=== PATIENT | female | born 1995 | race American Indian/Alaskan Native ===

== ENCOUNTER 2017-11-27 07:22 | Emergency (ER) | payer OTHER ==
[2017-11-27 07:28] VITALS: TEMP 97; BMI 25.4
[2017-11-27] MEDS ORDERED: Albuterol-Ipratrop 3 mg / 0.5 (3 ml) UD ONE (07:45)
[2017-11-27] MEDS ORDERED: Albuterol-Ipratrop 3 mg / 0.5 (3 ml) UD INH STA (07:59)
[2017-11-27] MEDS ORDERED: Albuterol-Ipratrop 3 mg / 0.5 (3 ml) UD IH STA (07:59)
[2017-11-27 08:00] VITALS: RESP 20
--- NOTE | 2017-11-27 08:31 | ED PDOC ---
HPI: General Adult Time Seen by Provider: 11/27/17 07:38 Chief Complaint (Nursing): Shortness Of Breath History Per: Patient History/Exam Limitations: no limitations Onset/Duration Of Symptoms: Days (x 3) Current Symptoms Are (Timing): Still Present Additional Complaint(s): Ms. Khan is a 22 year old female who presents to the ED complaining of trouble breathing and wheezing since midnight. Patient states she ran out of her inhaler "couple a days ago". Patient reports slight back tightness. Denies nausea, vomiting, abdominal pain, chest pain, dizziness, weakness, headache. PMD: Willis Past Medical History Reviewed: Historical Data, Nursing Documentation, Vital Signs Vital Signs: Last Vital Signs Temp 97 F L 11/27/17 07:27 Pulse 92 H 11/27/17 07:27 Resp 20 11/27/17 07:52 BP 128/78 11/27/17 07:27 Pulse Ox 95 11/27/17 08:39 - Medical History PMH: Asthma - Surgical History Surgical History: No Surg Hx - Family History Family History: States: Unknown Family Hx - Social History Current smoker - smoking cessation education provided: No Alcohol: None Drugs: Denies - Home Medications Home Medications: Ambulatory Orders Medication Instructions Recorded Albuterol Sulfate [Proair Hfa] 0.09 mg IH Q6H PRN #2 inh 11/27/17 predniSONE [predniSONE Tab] 20 mg PO BID 5 Days tab 11/27/17 - Allergies Allergies/Adverse Reactions: Allergies Allergy/AdvReac Type Severity Reaction Status Date / Time No Known Allergies Allergy Verified 11/27/17 07:48 Review of Systems ROS Statement: Except As Marked, All Systems Reviewed And Found Negative Cardiovascular: Negative for: Chest Pain Respiratory: Positive for: Shortness of Breath, Wheezing Gastrointestinal: Negative for: Nausea, Vomiting, Abdominal Pain Neurological: Negative for: Weakness, Headache, Dizziness Physical Exam - Reviewed Nursing Documentation Reviewed: Yes Vital Signs Reviewed: Yes - Physical Exam Appears: Positive for: Non-toxic Head Exam: Positive for: ATRAUMATIC, NORMAL INSPECTION, NORMOCEPHALIC Skin: Positive for: Normal Color, Warm, Dry Eye Exam: Positive for: Normal appearance, EOMI, PERRL ENT: Positive for: Normal ENT Inspection Neck: Positive for: Normal Cardiovascular/Chest: Positive for: Regular Rate, Rhythm Respiratory: Positive for: Wheezing (Wheezing bilaterally on expiration) Gastrointestinal/Abdominal: Positive for: Normal Exam Back: Positive for: Normal Inspection. Negative for: L CVA Tenderness, R CVA Tenderness Extremity: Positive for: Normal ROM. Negative for: Tenderness, Pedal Edema, Deformity Neurologic/Psych: Positive for: Alert, Oriented (x 3) - ECG O2 Sat by Pulse Oximetry: 95 Pulse Ox Interpretation: Normal - Progress ED Course And Treament: 848: Feels like her asthma. Better now. AAOx3. No dyspnea. Fu with pcp. Medical Decision Making Medical Decision Making: Time: 07:59 - Duoneb 3 mg/0.5 mg (3 ml) UD - Duoneb 3 mg/0.5 mg (3 ml) UD - predniSONE Tab 60 mg PO STAT - Peak Flow Pre/Post Treatment Scribe Attestation: Documented by Jerrod Jerez, acting as a scribe for Main Navarro MD. Provider Scribe Attestation: All medical record entries made by the Scribe were at my direction and personally dictated by me. I have reviewed the chart and agree that the record accurately reflects my personal performance of the history, physical exam, medical decision making, and the department course for this patient. I have also personally directed, reviewed, and agree with the discharge instructions and disposition. Disposition - Clinical Impression Clinical Impression: Asthma - Patient ED Disposition Is Patient to be Admitted: Yes Counseled Patient/Family Regarding: Diagnosis, Need For Followup, Rx Given - Disposition Referrals: [facility] [Outside] - 11/29/17 Disposition: Routine/Home Disposition Time: 08:56 Condition: STABLE Additional Instructions: Return if not better in 3 days. Prescriptions: Albuterol Sulfate [Proair Hfa] 0.09 mg IH Q6H PRN #2 inh PRN Reason: Wheezing predniSONE [predniSONE Tab] 20 mg PO BID 5 Days tab Instructions: Asthma, Adult (DC) Forms: [facility] (Yoruba), [facility] ED School/Work Excuse
[2017-11-27 09:16] VITALS: BP 129/83; PULSE 80; O2SAT 99
== END 2017-11-27 09:10 | disposition home or self-care (01) ==
LOC: H.ER 07:22
DX: J45.909 Unspecified asthma, uncomplicated (principal)